=== PATIENT | female | born 1995 | race African-American/Black ===

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

== ENCOUNTER 2017-01-15 08:16 | Emergency (ER) | payer MEDICAID, OTHER ==
[~2017-01-15] VITALS: Ht 157.5 cm; Wt 55.5 kg
[2017-01-15 08:17] VITALS: BP 130/59; PULSE 99; RESP 18; TEMP 99.2; O2SAT 98
--- NOTE | 2017-01-15 09:14 | PD ---
HPI Chief Complaint: GI Complaint Time Seen by Provider: 09:14 Travel History International Travel<30 days: No Contact w/Intl Traveler<30days: No Traveled to known affect area: No History of Present Illness HPI 21-year-old Afro-Russian female presents the emergency department with 3 day history of abdominal upset nausea and vomiting. Patient denies fever, urinary symptoms, vaginal discharge, diarrhea, or significant abdominal pain. Patient states decreased urination secondary to her nausea and vomiting. She denies headache, sore throat, or chest pain. She has no cough. Patient is allergic to chlorohydrate PFSH Past Medical History Immunizations Current: Yes ?: Not LMP: 12/02/16 Social History Alcohol Use: No Tobacco Use: No Substance Use: No Allergies-Medications (Allergen,Severity, Reaction): Coded Allergies: chloral hydrate (Unverified Allergy, Unknown, 01/15/17) Reported Meds & Prescriptions Reported Meds & Active Scripts Active Zofran (Ondansetron HCl) 4 Mg Tab 4 Mg PO Q6HR PRN Macrobid (Nitrofurantoin Monoh/Nitrofur Macro) 100 Mg Cap 100 Mg PO BID 7 Days Review of Systems Except as stated in HPI: all other systems reviewed are Neg General / Constitutional: Positive: Chills, No: Fever Eyes: No: Visual changes HENT: No: Headaches, Vertigo, Lightheadedness, Sore Throat, Rhinitis, Rhinorrhea, Congestion, Nosebleed, Neck Stiffness, Neck Pain, Masses, Gingival Bleeding, Dental Difficulties, Ear Discharge, Earache Cardiovascular: No: Chest Pain or Discomfort Respiratory: No: Cough, Shortness of Breath, Wheezing, Pleuritic Pain Gastrointestinal: Positive: Nausea, Vomiting, Loss of Appetite, No: Diarrhea, Abdominal Pain Genitourinary: No: Urgency, Frequency, Dysuria Musculoskeletal: No: Pain Skin: No Rash Neurologic: No: Weakness Psychiatric: No: Depression Endocrine: No: Polydipsia Hematologic/Lymphatic: No: Easy Bruising Physical Exam Narrative GENERAL: Patient appears in mild to moderate distress. SKIN: Warm and dry. Normal color. Somewhat decreased turgor. HEAD: Atraumatic. Normocephalic. EYES: Pupils equal and round. No scleral icterus. No injection or drainage. ENT: No nasal bleeding or discharge. Mucous membranes pink and moist. Pharynx is clear. Airway is patent. NECK: Trachea midline. Supple nontender CARDIOVASCULAR: Regular rate and rhythm. RESPIRATORY: No accessory muscle use. Clear to auscultation. Breath sounds equal bilaterally. GASTROINTESTINAL: Abdomen soft, non-tender, nondistended. Hepatic and splenic margins not palpable. No CVA tenderness. MUSCULOSKELETAL: Extremities without clubbing, cyanosis, or edema. No obvious deformities. NEUROLOGICAL: Awake and alert. No obvious cranial nerve deficits. Motor grossly within normal limits. Five out of 5 muscle strength in the arms and legs. Normal speech. PSYCHIATRIC: Appropriate mood and affect; insight and judgment normal. Data Data Last Documented VS Vital Signs Date Time Temp Pulse Resp B/P (MAP) Pulse Ox O2 Delivery O2 Flow Rate FiO2 01/15/17 10:13 18 01/15/17 10:13 98.5 84 132/70 (90) 100 Room Air Orders Orders Urinalysis - C+S If Indicated (01/15/17 08:32) Ed Urine Pregnancytest Poc (01/15/17 08:32) Complete Blood Count With Diff (01/15/17 09:20) Comprehensive Metabolic Panel (01/15/17 09:20) Lipase (01/15/17 09:20) Lactic Acid (01/15/17 09:20) Prothrombin Time / Inr (Pt) (01/15/17 09:20) Act Partial Throm Time (Ptt) (01/15/17 09:20) Iv Access Insert/Monitor (01/15/17 09:20) Ecg Monitoring (01/15/17 09:20) Oximetry (01/15/17 09:20) NPO (01/15/17 09:20) Ondansetron Inj (Zofran Inj) (01/15/17 09:30) Sodium Chlor 0.9% 1000 Ml Inj (Ns 1000 M (01/15/17 09:20) Sodium Chloride 0.9% Flush (Ns Flush) (01/15/17 09:30) Labs Laboratory Tests Test 01/15/17 10:30 01/15/17 11:00 White Blood Count 5.0 TH/MM3 Red Blood Count 4.46 MIL/MM3 Hemoglobin 13.4 GM/DL Hematocrit 39.3 % Mean Corpuscular Volume 88.0 FL Mean Corpuscular Hemoglobin 30.0 PG Mean Corpuscular Hemoglobin Concent 34.1 % Red Cell Distribution Width 12.3 % Platelet Count 213 TH/MM3 Mean Platelet Volume 10.6 FL Neutrophils (%) (Auto) 69.4 % Lymphocytes (%) (Auto) 16.9 % Monocytes (%) (Auto) 13.3 % Eosinophils (%) (Auto) 0.0 % Basophils (%) (Auto) 0.4 % Neutrophils # (Auto) 3.5 TH/MM3 Lymphocytes # (Auto) 0.9 TH/MM3 Monocytes # (Auto) 0.7 TH/MM3 Eosinophils # (Auto) 0.0 TH/MM3 Basophils # (Auto) 0.0 TH/MM3 CBC Comment DIFF FINAL Differential Comment Prothrombin Time 11.4 SEC Prothromb Time International Ratio 1.1 RATIO Activated Partial Thromboplast Time 25.8 SEC Blood Urea Nitrogen 13 MG/DL Creatinine 0.72 MG/DL Random Glucose 108 MG/DL Total Protein 8.3 GM/DL Albumin 4.3 GM/DL Calcium Level 9.6 MG/DL Alkaline Phosphatase 51 U/L Aspartate Amino Transf (AST/SGOT) 17 U/L Alanine Aminotransferase (ALT/SGPT) 23 U/L Total Bilirubin 0.4 MG/DL Sodium Level 133 MEQ/L Potassium Level 3.9 MEQ/L Chloride Level 101 MEQ/L Carbon Dioxide Level 24.0 MEQ/L Anion Gap 8 MEQ/L Estimat Glomerular Filtration Rate 126 ML/MIN Lactic Acid Level 1.7 mmol/L Lipase 92 U/L Urine Color YELLOW Urine Turbidity HAZY Urine pH 6.0 Urine Specific [place] 1.029 Urine Protein 100 mg/dL Urine Glucose (UA) NEG mg/dL Urine Ketones 150 mg/dL Urine Occult Blood NEG Urine Nitrite NEG Urine Bilirubin NEG Urine Urobilinogen LESS THAN 2.0 MG/DL Urine Leukocyte Esterase NEG Urine RBC 1 /hpf Urine WBC 8 /hpf Urine Squamous Epithelial Cells 26 /hpf Urine Bacteria RARE /hpf Urine Hyaline Casts 16 /lpf Urine Mucus MANY /lpf Microscopic Urinalysis Comment CULT NOT INDICATED MDM Medical Decision Making Medical Screen Exam Complete: Yes Emergency Medical Condition: Yes Differential Diagnosis Nausea and vomiting. Abdominal pain. . Urinary tract infection. Narrative Course Patient appears medically stable. Labs ordered including CBC, CMP, urinalysis, urine . IV access is obtained patient is given 2 L normal saline bolus. Patient is given 4 mg Zofran IV. Urine is positive. Patient states her last menstrual period was sometime in the beginning of last month but she can't remember specific date. Labs show lightly low sodium of 133 otherwise no significant findings. Urinalysis is unremarkable. Patient will be treated with Zofran 4 mg every 6 hours when necessary nausea # 20. [facility] is [facility] for further follow-up for her . Patient follow-up with her primary care physician as well as needed. Diagnosis Primary Impression: Nausea and vomiting in prior to 22 weeks gestation Referrals: [facility] call for appointment Patient Instructions: Abdominal Pain in (ED), Acute Nausea and Vomiting (ED), General Instructions Additional Instructions: Urine is positive. Patient states her last menstrual period was sometime in the beginning of last month but she can't remember specific date. Labs show lightly low sodium of 133 otherwise no significant findings. Urinalysis is unremarkable. Patient will be treated with Zofran 4 mg every 6 hours when necessary nausea # 20. Patient is referred to the [facility] for further follow-up for her . Patient follow-up with her primary care physician as well as needed. Med/Other Pt SpecificInfo: Prescription(s) given Scripts Ondansetron (Zofran) 4 Mg Tab 4 MG PO Q6HR Y for NAUSEA OR VOMITING, #20 TAB 0 Refills Prov: Aissatou Mejía DO 01/15/17 Disposition: 01 DISCHARGE HOME Condition: Stable Binh Delvalle Jan 15, 2017 09:14
[2017-01-15] MEDS ORDERED: KETOROLAC TROMETHAMINE 30 MG/ML (IVP) VIAL IVP ONE (09:30)
[2017-01-15] MEDS ORDERED: SODIUM CHLORIDE 0.9% FLUSH 10 ML FLUSH IV FLUSH PRN (09:30)
[2017-01-15] MEDS ORDERED: ONDANSETRON HCL 4 MG/2 ML VIAL IVP ONE (09:30)
[2017-01-15 10:13] VITALS: BP 132/70; PULSE 84; RESP 18; TEMP 98.5; O2SAT 100
[2017-01-15] MEDS ORDERED: ZOFR4TAB PO (10:34)
[2017-01-15] MEDS: SODIUM CHLOR 0.9% 1000 ML INJ 1,000 ML IV SCH ×2 (10:38→11:15)
[2017-01-15 11:08] LABS: AUTOMATED NEUTROPHIL # 3.5 TH/MM3 (1.8-7.7); BASOPHIL % 0.4 % (0.0-2.0); HEMATOCRIT 39.3 % (35.0-46.0); HEMO FLAGS DIFF FINAL; LYMPH % 16.9 % (9.0-44.0); LYMPHOCYTE # 0.9 TH/MM3 (1.0-4.8); MEAN CORPUSCULAR HGB CONC 34.1 % (32.0-36.0); MONO % 13.3 % (0.0-8.0); NEUT % 69.4 % (16.0-70.0); PLATELET COUNT 213 TH/MM3 (150-450); RED BLOOD COUNT 4.46 MIL/MM3 (4.00-5.30); RED CELL DISTRIBUTION WIDTH 12.3 % (11.6-17.2)
[2017-01-15 11:13] LABS: APTT (PATIENT) 25.8 SEC (24.3-30.1); INTERNATIONAL NORMALIZED RATIO 1.1 RATIO; PROTHROMBIN TIME - PATIENT 11.4 SEC (9.8-11.6)
[2017-01-15 11:33] LABS: ANION GAP 8 MEQ/L (5-15); AST (GOT) 17 U/L (16-38); BLOOD UREA NITROGEN 13 MG/DL (7-18); CHLORIDE 101 MEQ/L (98-107); GLOMERULAR FILTRATION RATE 126 ML/MIN (>89); POTASSIUM 3.9 MEQ/L (3.5-5.1); SODIUM (NA) 133 MEQ/L (136-145)
[2017-01-15 11:37] LABS: ALKALINE PHOSPHATASE 51 U/L (45-117); ALT (GPT) 23 U/L (9-42); TOTAL BILIRUBIN ADULT 0.4 MG/DL (0.2-1.0)
[2017-01-15 12:05] LABS: BACTERIA, URINE RARE /hpf; BLOOD, URINE NEG (NEG); COMMENT (UR) CULT NOT INDICATED; CULTURE IF INDICATED CULT NOT INDICATED; GLUCOSE,URINE NEG (NEG); HYALINE CAST, URINE 16 /lpf (RARE); KETONE, URINE 150 mg/dL (NEG); MUCUS URINE MANY /lpf (OCC); NITRITE,URINE NEG (NEG); SQUAMOUS EPITHELIAL CELL URINE 26 /hpf (0-5); URINE COLOR YELLOW (YELLW/STRAW)
[2017-01-15 12:33] VITALS: BP 112/86
--- NOTE | 2017-01-15 22:21 | EKG ---
Date Performed: 01/15/2017 Time Performed: 10:44:43 PTAGE: 21 years EKG: Sinus rhythm POSSIBLE LEFT ATRIAL ENLARGEMENT BORDERLINE ECG DOCTOR: Katarzyna Dunne Interpretating Date/Time 01/15/2017 22:20:45
[2017-01-16] MEDS ORDERED: DOXY10TA PO ×2 (19:15→19:35)
== END 2017-01-15 12:50 | disposition home or self-care (01) ==
LOC: NEPD 08:16
DX: O21.9 Vomiting of pregnancy, unspecified (principal); R11.0 Nausea; Z3A.01 Less than 8 weeks gestation of pregnancy
CPT/HCPCS: 80053; 81001; 83605; 83690; 84703; 85025; 85610; 85730; 93005; 96361; 96374; 99284; J2405; J7030

== ENCOUNTER 2017-01-16 16:51 | Emergency (ER) | payer MEDICAID ==
[~2017-01-16] VITALS: Ht 157.5 cm; Wt 54.5 kg
[~2017-01-16 16:51] MED LIST changes: +ZOFR4TAB PO
[2017-01-16 16:53] VITALS: BP 116/56; PULSE 78; RESP 16; TEMP 99.1; O2SAT 98
[2017-01-16] MEDS ORDERED: DOXY10TA PO ×2 (19:15→19:35)
--- NOTE | 2017-01-16 19:26 | PD ---
HPI Chief Complaint: Pain: Acute or Chronic Time Seen by Provider: 19:00 Travel History International Travel<30 days: No Contact w/Intl Traveler<30days: No Traveled to known affect area: No History of Present Illness HPI 21-year-old female presents to the emergency room for evaluation of nausea , vomiting, and chest pain for the past several days. Patient came to the emergency room yesterday for the same complaint. She had a normal workup and was discharged with prescription for Zofran. States she took the prescription to [facility] before they did not take her insurance and to go to [facility]. Patient states [facility] will not accept her insurance which is Medicaid [place]. Patient has had 3 episodes of nausea and vomiting today. States she has had decreased appetite because anytime she eats, she will throw up. The chest pain is localized just above her sternum and radiates into the clavicle area. It is relieved when she sleeps and lives on her right side. She denies any significant vaginal discharge, vaginal bleeding, or abdominal pain. Denies any other pain. LMP was at the beginning of December. [facility] Past Medical History Immunizations Current: Yes ?: LMP: 12/2016 Social History Alcohol Use: No Tobacco Use: No Substance Use: No Allergies-Medications (Allergen,Severity, Reaction): Coded Allergies: chloral hydrate (Unverified Allergy, Unknown, 01/15/17) Reported Meds & Prescriptions Reported Meds & Active Scripts Active Diclegis (Doxylamine-Pyridoxine) 10-10 Mg Tab 1 Tab PO HS Zofran (Ondansetron HCl) 4 Mg Tab 4 Mg PO Q6HR PRN Macrobid (Nitrofurantoin Monoh/Nitrofur Macro) 100 Mg Cap 100 Mg PO BID 7 Days Review of Systems Except as stated in HPI: all other systems reviewed are Neg Physical Exam Narrative GENERAL: Well-nourished, well-developed female in no acute distress. Afebrile. Ambulatory. SKIN: Focused skin assessment warm/dry. HEAD: Normocephalic. EYES: No scleral icterus. No injection or drainage. NECK: Supple, trachea midline. No JVD or lymphadenopathy. CARDIOVASCULAR: Regular rate and rhythm without murmurs, gallops, or rubs. RESPIRATORY: Breath sounds equal bilaterally. No accessory muscle use. GASTROINTESTINAL: Abdomen soft, non-tender, nondistended. No pelvic tenderness. Data Data Last Documented VS Vital Signs Date Time Temp Pulse Resp B/P (MAP) Pulse Ox O2 Delivery O2 Flow Rate FiO2 01/16/17 16:53 99.1 78 16 116/56 (76) 98 Room Air Orders Orders Ed Discharge Order (01/16/17 19:26) MDM Medical Decision Making Medical Screen Exam Complete: Yes Emergency Medical Condition: Yes Medical Record Reviewed: Yes Differential Diagnosis Nausea and vomiting during , chest pain, esophagitis, GERD Narrative Course 21-year-old approximately 5 week female presents to the emergency room for evaluation of nausea, vomiting, and chest pain that started several days ago. She came to the ER yesterday and had full workup which was negative. EKG showed left atrial enlargement but was otherwise unremarkable. CBC and CMP were only remarkable for mild hyponatremia 133. Patient was discharged with prescription for Zofran but did not have it filled. Symptoms are unchanged from yesterday. She denies any significant abdominal pain, pelvic pain, vaginal discharge, or bleeding. Abdomen is soft and nontender. Vital signs stable. Patient does not appear dehydrated. Mucous membranes are moist. She was told to try another pharmacy and given a prescription for Diclegis. Told to follow up with an PAUNCH TRIMMER this week, call for appointment tomorrow. Told to return for worsening symptoms. She understands and agrees to plan. Diagnosis Primary Impression: Nausea and vomiting during Referrals: [facility] Additional Instructions: Take 2 tablets at bedtime on day 1 and 2. If symptoms persist, take 1 tablet in morning and 2 tablets at bedtime on day 3. Megan may help with symptoms. Follow-up with an finishing operator. Return to the emergency room for worsening symptoms. Med/Other Pt SpecificInfo: Prescription(s) given Scripts Doxylamine-Pyridoxine (Diclegis) 10-10 Mg Tab 1 TAB PO HS, #21 Prov: Margarito Rdz MD 01/16/17 Disposition: 01 DISCHARGE HOME Condition: Stable Cely Navarro Jan 16, 2017 19:26
== END 2017-01-16 19:43 | disposition home or self-care (01) ==
LOC: NEPK 16:51
DX: O21.9 Vomiting of pregnancy, unspecified (principal); Z3A.01 Less than 8 weeks gestation of pregnancy
CPT/HCPCS: 99283

== ENCOUNTER 2017-09-05 23:14 | Inpatient (IN) ==
--- NOTE | 2017-09-06 01:14 | ED ---
History of Present Illness Primary Care Physician: UNKNOWN Chief Complaint: LOF History of Present Illness: 21 yo presents at 39 wks by second trimester u/s, with LOF, clear at 11 pm. pt denies VB. +CTX and nl FM. with limited care. denies BESS/RUQ pain/visual changes Review of Systems All other systems reviewed negative except as stated in HPI PMFSH - Medical / Surgical Hx Neg / Unobtainable Medical Problems Denied: Yes Surgical History: No Previous Surgery - Tobacco History Smoking Status: Never smoker - Alcohol History How Often Do You Have a Drink Containing Alcohol: Never (during ) - Substance Use History Substance History: No History of Abuse - Travel History Recent Travel in the [place] Within the Last 8 Weeks: No Recent Travel Out of the Country Within the Last 8 Weeks: No Medications and Allergies Active Medications: Active Medications Sodium Chloride (Ns Flush) 2 ml IV.FLUSH BID MADALYN Sodium Chloride (Ns Flush) 2 ml IV.FLUSH PRN PRN PRN Reason: FLUSH AFTER USING IV ACCESS Allergies Allergy/AdvReac Type Severity Reaction Status Date / Time chloral hydrate Allergy Unknown Unverified 01/15/17 10:11 Exam Vital signs: Vital Signs 09/06/17 00:00 09/06/17 00:57 Temperature 99.6 F Pulse Rate 77 Respiratory Rate 18 Blood Pressure 162/89 H 149/122 H - Constitutional no acute distress - Routine Respiratory Exam Present: CTA bilaterally - Routine Cardiovascular Exam Present: RRR - Routine Abdominal Exam Present: soft, normoactive bowel sounds - Routine Exam Comments: SVE: 3-4/100/-1 grossly SROM FHTs cat 1 Assessment and Plan - Diagnosis (1) SROM (spontaneous rupture of membranes) Status: Acute Plan: admit check GBS/ labs check GHTN labs epidural PRN Discharge Plan - Discharge Disposition Patient Disposition: 30 Still Patient - Discharge Condition Condition: Stable - Physicians Team ED Provider: Megha Oliveros Primary Care Provider: UNKNOWN, - Discharge Instructions Print Language: Portuguese
[2017-09-06] MEDS ORDERED: Sodium Chlor 0.9% Inj 500 ML IV.SIG PRN (01:17)
[2017-09-06] MEDS ORDERED: Naloxone Inj 0.4 MG/ML Vial IV.PUSH PRN ×2 (01:17→18:36)
[2017-09-06] MEDS ORDERED: Oxytocin 30 Units/500ml Premix 30 UNITS/500 ML BAG IV.SIG PRN (01:17)
[2017-09-06] MEDS ORDERED: fentaNYL Citrate Inj 100 MCG/2 ML Ampul IV.PUSH PRN ×2 (01:17)
[2017-09-06] MEDS ORDERED: Oxytocin 30 Units/500ml Premix 30 UNITS/500 ML BAG IV.SIG ONE (01:17)
[2017-09-06] MEDS ORDERED: Sod Chloride 0.9% Inj 1,000 ML IV.CONT PRN (01:17)
--- NOTE | 2017-09-06 01:26 | P.HPOB ---
History of Present Illness Primary Care Physician: UNKNOWN Chief Complaint: LOF History of Present Illness: 21 yo presents at 39 wks by second trimester u/s, with LOF, clear at 11 pm. pt denies VB. +CTX and nl FM. with limited care. denies BESS/RUQ pain/visual changes Review of Systems All other systems reviewed negative except as stated in HPI PMFSH - Medical / Surgical Hx Neg / Unobtainable Medical Problems Denied: Yes Surgical History: No Previous Surgery - Tobacco History Smoking Status: Never smoker - Alcohol History How Often Do You Have a Drink Containing Alcohol: Never (during ) - Substance Use History Substance History: No History of Abuse - Travel History Recent Travel in the [place] Within the Last 8 Weeks: No Recent Travel Out of the Country Within the Last 8 Weeks: No Medications and Allergies Active Medications: Active Medications Sodium Chloride (Ns Flush) 2 ml IV.FLUSH BID MADALYN Sodium Chloride (Ns Flush) 2 ml IV.FLUSH PRN PRN PRN Reason: FLUSH AFTER USING IV ACCESS Allergies Allergy/AdvReac Type Severity Reaction Status Date / Time chloral hydrate Allergy Unknown Unverified 01/15/17 10:11 Exam Vital signs: Vital Signs 09/06/17 00:00 09/06/17 00:57 Temperature 99.6 F Pulse Rate 77 Respiratory Rate 18 Blood Pressure 162/89 H 149/122 H - Constitutional no acute distress - Routine Respiratory Exam Present: CTA bilaterally - Routine Cardiovascular Exam Present: RRR - Routine Abdominal Exam Present: soft, normoactive bowel sounds - Routine Exam Comments: SVE: 3-4/100/-1 grossly SROM FHTs cat 1 Assessment and Plan - Diagnosis (1) SROM (spontaneous rupture of membranes) Status: Acute Plan: admit check GBS/ labs check GHTN labs epidural PRN
[2017-09-06] MEDS ORDERED: Citric Acid/Sodium Citrate Liq 30 ML UDC PO SCH (01:30)
[2017-09-06] MEDS ORDERED: Labetalol HCl Inj 100 MG/20 ML Vial ONE (01:35)
[2017-09-06] MEDS ORDERED: Mag Sulf/Water 40 gm/1000 ml 40 GM/1,000 ML BAG IV.CONT ONE (01:37)
[2017-09-06 01:38] LABS: Amphetamine Urine With Conf Neg (Neg); Benzodiazepine Urine With Conf Neg (Neg)
[2017-09-06 01:40] LABS: Hemoglobin 12.2 gm/dL (11.6-15.3); Mean Corpuscular HGB Conc 33.9 % (32.0-36.0); Mean Corpuscular Volume 88.5 fL (80.0-100.0); Mean Platelet Volume 10.2 fL (7.0-11.0); Platelet Count 217 th/mm3 (150-450); Red Blood Count 4.06 mil/mm3 (4.00-5.30); Red Cell Distribution Width 12.2 % (11.6-17.2); White Blood Count 4.9 th/mm3 (4.0-11.0)
[2017-09-06 01:44] LABS: Bacteria,Urine Few /hpf; Bilirubin,Urine Negative (Negative); Clarity,Urine Cloudy (Clear); Color,Urine Yellow (Yellw/Straw); Glucose,Urine (UA) Negative (Negative); Hyaline Casts,Urine 1 /lpf (0-3); Leukocyte Esterase,Urine Moderate (Negative); Mucus,Urine Few /lpf (Occasional); Nitrite,Urine Negative (Negative); Specific Gravity,Urine 1.005 (1.002-1.035); Squamous Epithelial Cell,Urine 10 /hpf (0-5); Trichomonas,Urine Rare /hpf
[2017-09-06 01:45] LABS: Alanine Aminotransferase 12 U/L (9-42); Albumin 2.8 g/dL (3.4-5.0); Anion Gap 8 meq/L (5-15); Aspartate Aminotransferase 5 U/L (16-38); Blood Urea Nitrogen 5 mg/dL (7-18); Calcium 8.8 mg/dL (8.5-10.1); Carbon Dioxide 25.1 meq/L (21.0-32.0); Chloride 108 meq/L (98-107); Glomerular Filtration Rate Greater Than 89 mL/min (>89); Glucose,Random 74 mg/dL (74-106); Potassium 4.1 meq/L (3.5-5.1); Sodium 141 meq/L (136-145); Uric Acid 5.1 mg/dl (2.6-6.0)
[2017-09-06 01:47] LABS: Alkaline Phosphatase 185 U/L (45-117)
[2017-09-06] MEDS ORDERED: Labetalol HCl Inj 100 MG/20 ML Vial IV.PUSH PRN ×3 (01:49→02:12)
[2017-09-06] MEDS ORDERED: Mag Sulf/Water 4 gm/100 ml 100 ML IV.SIG ONE (01:49)
[2017-09-06] MEDS ORDERED: hydrALAZINE HCl Inj 20 MG/ML Vial IV.PUSH PRN ×2 (01:49→02:13)
[2017-09-06] MEDS ORDERED: fentaNYL 2MCG-Bupiv 0.125% Epi 150 ML EPIDURAL ONE (02:05)
[2017-09-06] MEDS ORDERED: Calcium Chloride Inj 1 GM/10 ML Syringe IV.PUSH PRN (02:49)
[2017-09-06] MEDS ORDERED: fentaNYL Citrate Inj 100 MCG/2 ML Ampul EPIDURAL ONE (03:17)
[2017-09-06] MEDS ORDERED: fentaNYL 2MCG-Bupiv 0.125% Epi 150 ML EPIDURAL PRN (03:30)
[2017-09-06 03:57] LABS: Hepatitis A IgM Antibody Nonreactive (Nonreactive); Hepatitits B Surface Antigen Nonreactive (Nonreactive)
--- NOTE | 2017-09-06 07:07 | P.OBLABOR ---
Subjective Interval history: pt comfortable with epidural, denies SOB/CP/BESS/RUQ pain/visual changes Objective Vital Signs: Vital Signs - 8 hr 09/06/17 00:00 09/06/17 00:57 09/06/17 01:25 Temperature 99.6 F Pulse Rate 77 89 Respiratory Rate 18 Blood Pressure 162/89 H 149/122 H 139/90 09/06/17 01:26 09/06/17 01:34 09/06/17 01:41 Temperature Pulse Rate 86 Respiratory Rate 16 Blood Pressure 162/111 H 155/94 H 09/06/17 01:43 09/06/17 01:45 09/06/17 01:51 Temperature Pulse Rate 77 87 97 H Respiratory Rate Blood Pressure 142/94 H 141/82 H 150/74 H 09/06/17 01:54 09/06/17 01:57 09/06/17 02:10 Temperature Pulse Rate 93 H 96 H Respiratory Rate 16 16 Blood Pressure 144/81 H 153/87 H 09/06/17 02:27 09/06/17 02:30 09/06/17 02:40 Temperature Pulse Rate 86 89 Respiratory Rate Blood Pressure 145/80 H 143/91 H 139/82 09/06/17 02:45 09/06/17 03:10 09/06/17 03:30 Temperature 98.8 F Pulse Rate 81 83 100 H Respiratory Rate 16 Blood Pressure 141/64 H 139/64 113/29 L 09/06/17 03:45 09/06/17 04:00 09/06/17 04:12 Temperature Pulse Rate 80 Respiratory Rate 18 18 Blood Pressure 133/51 L 122/43 L 09/06/17 04:25 09/06/17 04:45 09/06/17 04:50 Temperature 98.8 F Pulse Rate 94 H 91 H Respiratory Rate Blood Pressure 127/61 132/61 09/06/17 04:55 09/06/17 05:10 09/06/17 05:25 Temperature Pulse Rate 89 83 Respiratory Rate 16 Blood Pressure 146/88 H 128/72 09/06/17 06:20 09/06/17 06:30 09/06/17 06:35 Temperature Pulse Rate 82 84 Respiratory Rate 16 16 Blood Pressure 141/86 H 143/95 H 09/06/17 06:45 09/06/17 06:50 Temperature Pulse Rate 80 Respiratory Rate 16 Blood Pressure 145/81 H Objective: Pelvic Exam: Cervix: [-] 5-6/100/-1 at 6:11 Dilatation: [-] Effacement: [-] Station: [-] Presentation: [-] Membranes: [ruptured] Uterine Contractions: [-] q 2-3 MVUS 180-240 since 6:11 FHT's: Category: [-] 1 Baseline: [-] 120s Reactive: [-] yes Variability: [-] mod Decels: [-] 9 min decel at 5:45 am resolved with pit off and position changes. amnioinfusion also started. Weeks Gestation: 39 Assessment and Plan - Diagnosis (1) SROM (spontaneous rupture of membranes) Status: Acute Plan: adequate contractions without pitocin GBS neg (2) Pre-eclampsia Code(s): O14.90 - Unspecified pre-eclampsia, unspecified trimester Status: Acute Plan: s/p 1 dose of IV labetalol cont magnesium no s/sx of mag toxicity
[2017-09-06 07:18] LABS: Protein/Creatinine Ratio,Urine 2.41 (0.00-0.14)
--- NOTE | 2017-09-06 08:30 | P.OBLABOR ---
Subjective Interval history: pt comfortable, denies BESS/RUQ pain/visual changes. no SOB/CP. Objective Vital Signs: Vital Signs - 8 hr 09/06/17 00:57 09/06/17 01:25 09/06/17 01:26 Temperature Pulse Rate 89 Respiratory Rate 16 Blood Pressure 149/122 H 139/90 09/06/17 01:34 09/06/17 01:41 09/06/17 01:43 Temperature Pulse Rate 86 77 Respiratory Rate Blood Pressure 162/111 H 155/94 H 142/94 H 09/06/17 01:45 09/06/17 01:51 09/06/17 01:54 Temperature Pulse Rate 87 97 H Respiratory Rate 16 Blood Pressure 141/82 H 150/74 H 09/06/17 01:57 09/06/17 02:10 09/06/17 02:27 Temperature Pulse Rate 93 H 96 H Respiratory Rate 16 Blood Pressure 144/81 H 153/87 H 145/80 H 09/06/17 02:30 09/06/17 02:40 09/06/17 02:45 Temperature 98.8 F Pulse Rate 86 89 81 Respiratory Rate 16 Blood Pressure 143/91 H 139/82 141/64 H 09/06/17 03:10 09/06/17 03:30 09/06/17 03:45 Temperature Pulse Rate 83 100 H 80 Respiratory Rate 18 Blood Pressure 139/64 113/29 L 133/51 L 09/06/17 04:00 09/06/17 04:12 09/06/17 04:25 Temperature Pulse Rate 94 H Respiratory Rate 18 Blood Pressure 122/43 L 127/61 09/06/17 04:45 09/06/17 04:50 09/06/17 04:55 Temperature 98.8 F Pulse Rate 91 H Respiratory Rate 16 Blood Pressure 132/61 09/06/17 05:10 09/06/17 05:25 09/06/17 06:20 Temperature Pulse Rate 89 83 82 Respiratory Rate Blood Pressure 146/88 H 128/72 141/86 H 09/06/17 06:30 09/06/17 06:35 09/06/17 06:45 Temperature Pulse Rate 84 80 Respiratory Rate 16 16 Blood Pressure 143/95 H 145/81 H 09/06/17 06:50 09/06/17 07:15 09/06/17 07:25 Temperature 98.2 F Pulse Rate 80 Respiratory Rate 16 Blood Pressure 148/99 H 09/06/17 07:50 09/06/17 08:00 09/06/17 08:10 Temperature Pulse Rate 88 87 Respiratory Rate 16 Blood Pressure 155/86 H 160/56 H Objective: Pelvic Exam: Cervix: [-] 6/100/-1 vtx Dilatation: [-] Effacement: [-] Station: [-] Presentation: [-] Membranes: [ruptured] Uterine Contractions: [-] q3-4 FHT's: Category: [-] 1 Baseline: [-] 120s Reactive: [-] Variability: [-] mod Decels: [-] rare Weeks Gestation: 39 Patient Started Active Labor: Yes Assessment and Plan - Diagnosis (1) SROM (spontaneous rupture of membranes) Status: Acute Plan: inadequate contractions start pitocin GBS neg (2) Pre-eclampsia Code(s): O14.90 - Unspecified pre-eclampsia, unspecified trimester Status: Acute Plan: s/p 1 dose of IV labetalol cont magnesium no s/sx of mag toxicity
[2017-09-06] MEDS ORDERED: Measles/Mumps/Rubella Vaccine Inj 0.5 ML Vial SQ ONE (16:00)
[2017-09-06] MEDS ORDERED: Diphtheria/Tetanus/Pertussis Vaccine Inj 0.5 ML Syringe IM ONE (16:00)
[2017-09-06] MEDS ORDERED: Methylergonovine Inj 0.2 MG/ML Ampul ONE (18:28)
[2017-09-06] MEDS ORDERED: miSOPROStol 200 MCG Tablet ONE (18:29)
[2017-09-06] MEDS ORDERED: Carboprost Tromethamine Inj 250 MCG/ML Ampul IM ONE (18:29)
[2017-09-06] MEDS ORDERED: ENTER PATIENT'S HEIGHT AND WEIGHT INTO MEDITECH - CALL PHARMACY OTHER SCH (18:30)
[2017-09-06] MEDS ORDERED: Bisacodyl 10 MG Supp RECTAL PRN (18:36)
[2017-09-06] MEDS ORDERED: Witch Hazel 50%/Glyderin 12.5% 40 Pad Jar RECTAL PRN (18:36)
[2017-09-06] MEDS ORDERED: Benzocaine 20% Top Spray 60 ML Can TOPICAL PRN (18:36)
[2017-09-06] MEDS ORDERED: Zolpidem Tartrate 5 MG Tablet PO PRN (18:36)
[2017-09-06] MEDS ORDERED: Acetaminophen 325 MG Tablet PO PRN (18:36)
--- NOTE | 2017-09-06 18:46 | P.OBDELI ---
Weeks Gestation: 39 Patient Started Active Labor: Yes Artificial Rupture of Membrane: No Anesthesia: Epidural Episiotomy: none Vaginal Delivery: Normal Presentation: Occiput anterior Nuchal Cord: None Delayed Cord Clamping (45 sec): No (20 seconds cord clamp due to need for resucitation) Placenta: Spontaneous delivery Laceration: Vaginal, 2 deg (perineal with extention to L labia majora) Repair: Chromic running Estimated blood loss (mL): 750 (Hemabate given IM due to Uterine Atony ) : Male (Ap) Male A Delivery Date: 09/06/17 Infant Delivery Time: 18:16 score (1 min): 3 score (5 min): 3 score (10 min): 7 Attestation Collaborating MD Comments: I directly supervised this . Cord clamping was not delayed due to resuscitation necessity. Mild uterine atony treated with hemabate. Baby temp and mother temp immediately 100.4. Mother given an single dose of Rocephin.
[2017-09-06 18:50] LABS: Cord Arterial Blood HCO3 19.3
[2017-09-06] MEDS ORDERED: ceFAZolin 2 GM Premix Inj 2 GM/50 ML PIGGYBACK IV.SIG ONE (19:30)
[2017-09-06] MEDS ORDERED: Oxytocin 30 Units/500ml Premix 30 UNITS/500 ML BAG IV.CONT SCH (19:30)
[2017-09-06] MEDS: Mag Sulf/Water 40 gm/1000 ml 40 GM/1,000 ML BAG IV.CONT SCH (19:53)
[2017-09-07] MEDS: Ibuprofen 400 MG Tablet PO PRN ×2 (07:44→22:10)
--- NOTE | 2017-09-07 08:16 | P.PNOB ---
Subjective Interval history: Patient is a 21-year-old delivered at 38 weeks and 6 days. Patient is day 1 after . Patient's pain is well-controlled. Patient reports eating and drinking without any nausea or vomiting. Patient reports minimal bleeding. Patient has passed gas and had loose bowel movements after receiving Hemabate yesterday. Patient is walking without lower extremity pain or shortness of breath. Patient reports desire for contraception. She reports no lightheadedness/dizziness while on the magnesium. Objective Vital Signs/I&O: Vital Signs 09/06/17 08:30 09/06/17 08:40 09/06/17 08:55 Temperature Pulse Rate 90 90 91 H Respiratory Rate 16 Blood Pressure 154/67 H 143/80 H 149/96 H 09/06/17 09:00 09/06/17 09:15 09/06/17 09:30 Temperature 98.8 F Pulse Rate 94 H 88 Respiratory Rate 16 16 Blood Pressure 103/71 130/69 09/06/17 09:40 09/06/17 09:55 09/06/17 10:30 Temperature Pulse Rate 89 101 H 105 H Respiratory Rate 16 Blood Pressure 134/48 L 142/82 H 149/81 H 09/06/17 10:40 09/06/17 10:55 09/06/17 11:00 Temperature Pulse Rate 105 H 102 H Respiratory Rate 16 Blood Pressure 130/68 128/65 09/06/17 11:10 09/06/17 11:25 09/06/17 12:35 Temperature 99.1 F Pulse Rate 112 H 100 H 97 H Respiratory Rate 16 Blood Pressure 137/117 H 142/82 H 154/86 H 09/06/17 13:00 09/06/17 13:05 09/06/17 13:43 Temperature 99.3 F Pulse Rate 95 H 95 H 114 H Respiratory Rate 18 16 Blood Pressure 145/84 H 141/76 H 135/83 09/06/17 14:25 09/06/17 14:40 09/06/17 14:45 Temperature Pulse Rate 102 H 105 H Respiratory Rate 16 Blood Pressure 153/97 H 155/97 H 09/06/17 14:55 09/06/17 15:15 09/06/17 15:25 Temperature Pulse Rate 101 H 101 H 102 H Respiratory Rate 16 Blood Pressure 137/72 09/06/17 15:30 09/06/17 15:45 09/06/17 16:10 Temperature 99.2 F Pulse Rate 112 H 111 H Respiratory Rate 16 Blood Pressure 120/72 147/97 H 09/06/17 16:25 09/06/17 16:45 09/06/17 17:23 Temperature 100.0 F H Pulse Rate 117 H Respiratory Rate 18 Blood Pressure 09/06/17 17:25 09/06/17 18:58 09/06/17 19:30 Temperature 98.8 F Pulse Rate 99 H 99 H Respiratory Rate 18 16 16 Blood Pressure 149/82 H 156/97 H 09/06/17 19:42 09/06/17 19:45 09/06/17 19:50 Temperature Pulse Rate 101 H 99 H Respiratory Rate 16 16 Blood Pressure 151/93 H 09/06/17 20:00 09/06/17 20:20 09/06/17 21:00 Temperature Pulse Rate 101 H 99 H 94 H Respiratory Rate Blood Pressure 152/84 H 151/87 H 140/87 09/06/17 21:15 09/06/17 22:07 09/06/17 23:16 Temperature 98.9 F Pulse Rate 91 H 93 H Respiratory Rate 20 18 Blood Pressure 152/89 H 154/91 H 09/07/17 00:16 09/07/17 00:18 09/07/17 00:26 Temperature 98.5 F Pulse Rate 96 H 101 H Respiratory Rate 18 Blood Pressure 164/95 H 159/93 H 09/07/17 01:00 09/07/17 01:57 09/07/17 02:00 Temperature Pulse Rate 102 H 102 H Respiratory Rate 18 Blood Pressure 144/86 H 156/78 H 09/07/17 02:05 09/07/17 05:27 09/07/17 06:00 Temperature 98.5 F Pulse Rate 101 H 98 H Respiratory Rate 18 18 Blood Pressure 151/85 H 134/70 09/07/17 07:00 09/07/17 08:00 Temperature 98.7 F Pulse Rate 105 H 93 H Respiratory Rate 16 16 Blood Pressure 129/60 154/86 H Intake & Output 09/06/17 09/07/17 09/07/17 18:59 06:59 18:59 Intake Total 1000 / 1000 Balance 1000 / 1000 Weight 55 kg Intake: IV 1000 / 1000 LR 1000 mL Inj 1,000 ML @ 75 1000 / 1000 mls/hr IV.CONT .[id number] [facility] Rx# :[id number] Result Diagrams: 09/06/17 01:15 09/06/17 01:15 Objective Remarks: GENERAL: Well-nourished, well-developed patient. CARDIOVASCULAR: Regular rate and rhythm without murmurs, gallops, or rubs. RESPIRATORY: Breath sounds equal bilaterally. No accessory muscle use. ABDOMEN/GI: Abdomen soft, non-tender. Fundus: Firm, non-tender at umbilicus. GENITOURINARY: Light to moderate bleeding. EXTREMITIES: No cyanosis or edema, non-tender, without signs of DVT. Medications and IVs: Active Medications Acetaminophen (Tylenol) 650 mg PO Q4H PRN PRN Reason: PAIN SCALE 1 TO 2 Al Hydroxide/Mg Hydroxide (Milk Of Magnesia Liq) 30 ml PO Q12H PRN PRN Reason: Mild Constipation Benzocaine (Americaine 20% Top [place]) 1 spray TOPICAL Q4H PRN PRN Reason: For Perineum Discomfort Last Admin: 09/07/17 07:35 Dose: 1 spray Bisacodyl (Dulcolax Supp) 10 mg RECTAL DAILY PRN PRN Reason: SEVERE CONSITIPATION Calcium Chloride (Calcium Chloride Inj) 1 gm IV.PUSH UNSCH X1 PRN PRN Reason: MAGNESIUM TOXICITY Oxytocin (Pitocin 30 Units/Ns 500 Ml Premix) 30 units in 500 mls @ 2 mls/hr IV.SIG TITRATE PRN; Protocol PRN Reason: For induction of labor Magnesium Sulfate (Magnesium Sulfate/Water 40 Gm/1000 Ml Premix) 40 gm in 1, 000 mls @ 50 mls/hr IV.CONT Q24H [facility] Last Admin: 09/06/17 19:53 Dose: 2 gm/hr, 50 mls/hr Lactated Ringer's (Lr 1000 Ml Inj) 1,000 mls @ 75 mls/hr IV.CONT .[id number] [facility] Last Admin: 09/07/17 07:36 Dose: 75 mls/hr Ibuprofen (Motrin) 800 mg PO Q8H PRN PRN Reason: For cramping Last Admin: 09/07/17 07:44 Dose: 800 mg Labetalol HCl (Trandate Inj) 40 mg IV.PUSH NOW PRN PRN Reason: SEE LABEL COMMENTS Labetalol HCl (Trandate Inj) 80 mg IV.PUSH NOW PRN PRN Reason: SEE LABEL COMMENTS Lactulose (Lactulose Liq) 30 ml PO DAILY PRN PRN Reason: SEVERE CONSITIPATION Miscellaneous Information ([facility] [place] [facility]) 1 each OTHER Q15M M[facility] Naloxone HCl (Narcan Inj) 0.1 mg IV.PUSH Q2M PRN PRN Reason: for opiate reversal Ondansetron HCl (Zofran Odt) 4 mg PO Q6H PRN PRN Reason: NAUSEA OR VOMITING Oxycodone/Acetaminophen (Percocet 5/325 Mg) 2 tab PO Q4H PRN PRN Reason: PAIN SCALE 6 TO 10 Oxycodone/Acetaminophen (Percocet 5/325 Mg) 1 tab PO Q4H PRN PRN Reason: PAIN SCALE 3 TO 5 Senna/Docusate Sodium (Danielle-Colace) 1 tab PO BID MADALYN Sennosides (Senokot) 17.2 mg PO Q12H PRN PRN Reason: Moderate Constipation Sodium Chloride (Ns Flush) 2 ml IV.FLUSH BID MADALYN Sodium Chloride (Ns Flush) 2 ml IV.FLUSH PRN PRN PRN Reason: FLUSH AFTER USING IV ACCESS Witch Malinda/Glycerin (Tucks Pads) 1 applicatio RECTAL QID PRN PRN Reason: HEMORRHOIDS Last Admin: 09/07/17 07:35 Dose: 1 applicatio Zolpidem Tartrate (Ambien) 5 mg PO HS PRN PRN Reason: SLEEP Assessment and Plan - Diagnosis (1) Vaginal delivery Code(s): O80 - Encounter for full-term uncomplicated delivery Status: Acute (2) PIH ( induced hypertension) Code(s): O13.9 - Gestational [-induced] hypertension without significant proteinuria, unspecified trimester Status: Acute - Plan Patient is a 21-year-old delivered at 38 weeks and 6 days. Patient is day 1 after . Patient was counseled to do 6 weeks of pelvic rest. Patient was counseled to follow up in 6 weeks. Patient requested follow-up. Patient had PIH and is being treated as below. Pressures did not exceed 160/ 110 overnight. Patient did receive 1 dose of Ancef as she had a temperature of 100.0 --Currently on IV magnesium, will receive 24 hours of treatment pending on 09/07 at [facility] --IV labetalol as needed --Afebrile overnight --Continue routine care --Motrin and Percocet when necessary for pain --Encourage OOB --Pelvic rest for 6 weeks will need follow-up appointment at that time. --Contraception: Does not desire at this time --Anticipate discharge tomorrow
[2017-09-07] MEDS ORDERED: Morphine Sulfate PF Inj 5 MG/10 ML Ampul ONE (08:28)
[2017-09-07] MEDS: Senna/Docusate Sodium 8.6/50 MG Tablet PO SCH (09:07)
[2017-09-07] MEDS: Mag Sulf/Water 40 gm/1000 ml 40 GM/1,000 ML BAG IV.CONT SCH (13:41)
--- NOTE | 2017-09-08 07:55 | P.PNOB ---
Subjective Post day: 2 Interval history: day # 2. AFVSS overnight. Pain well-controlled. Decreased lochia. Denies dysuria. No breast tenderness. She is feeding the baby via bottle. Appetite good. No nausea or vomiting. + flatus. + bowel movement. Ambulating well. Denies calf pain, shortness of breath, or cough. Otherwise, she is doing well this morning and has no other complaints. denies BESS/RUQ pain/or visual changes Objective Vital Signs/I&O: Vital Signs 09/07/17 08:00 09/07/17 09:00 09/07/17 10:00 Temperature Pulse Rate 93 H 87 91 H Respiratory Rate 16 16 Blood Pressure 154/86 H 137/49 L 137/79 09/07/17 11:00 09/07/17 13:00 09/07/17 14:46 Temperature 98.2 F Pulse Rate 87 89 82 Respiratory Rate 16 16 16 Blood Pressure 134/57 L 135/78 124/55 L 09/07/17 15:00 09/07/17 16:00 09/07/17 17:00 Temperature Pulse Rate 84 73 Respiratory Rate 16 16 Blood Pressure 142/104 H 157/87 H 09/07/17 17:29 09/07/17 18:00 09/07/17 20:00 Temperature 98.0 F Pulse Rate 76 76 70 Respiratory Rate 16 18 Blood Pressure 150/84 H 144/86 H 149/79 H 09/07/17 23:35 09/08/17 04:00 Temperature 98.4 F 98.3 F Pulse Rate 83 78 Respiratory Rate 18 18 Blood Pressure 151/87 H 157/83 H Intake & Output 09/07/17 09/08/17 09/08/17 18:59 06:59 18:59 Intake Total 1999 Balance 1999 Weight 55 kg Intake: IV 1999 LR 1000 mL Inj 1,000 ML @ 75 1000 / 1000 mls/hr IV.CONT .[id number] [facility] Rx# :[id number] Magnesium Sulfate/Water 40 gm/ 1000 / 1000 1000 ml Premix 40 gm In 1,000 ml @ 2 GM/HR 50 mls/hr IV.CONT Q24H [facility] Rx#:[id number] Other: Weight On Admission 55 kg Result Diagrams: 09/06/17 01:15 09/06/17 01:15 Objective Remarks: GENERAL: Well-nourished, well-developed patient. CARDIOVASCULAR: Regular rate and rhythm without murmurs, gallops, or rubs. RESPIRATORY: Breath sounds equal bilaterally. No accessory muscle use. ABDOMEN/GI: Abdomen soft, non-tender. Fundus: Firm, non-tender at umbilicus. GENITOURINARY: Light to moderate bleeding. EXTREMITIES: No cyanosis or edema, non-tender, without signs of DVT. Medications and IVs: Active Medications Acetaminophen (Tylenol) 650 mg PO Q4H PRN PRN Reason: PAIN SCALE 1 TO 2 Al Hydroxide/Mg Hydroxide (Milk Of Magnesia Liq) 30 ml PO Q12H PRN PRN Reason: Mild Constipation Benzocaine (Americaine 20% [place]) 1 spray TOPICAL Q4H PRN PRN Reason: For Perineum Discomfort Last Admin: 09/07/17 07:35 Dose: 1 spray Bisacodyl (Dulcolax Supp) 10 mg RECTAL DAILY PRN PRN Reason: SEVERE CONSITIPATION Calcium Chloride (Calcium Chloride Inj) 1 gm IV.PUSH UNSCH X1 PRN PRN Reason: MAGNESIUM TOXICITY Oxytocin (Pitocin 30 Units/Ns 500 Ml Premix) 30 units in 500 mls @ 2 mls/hr IV.SIG TITRATE PRN; Protocol PRN Reason: For induction of labor Magnesium Sulfate (Magnesium Sulfate/Water 40 Gm/1000 Ml Premix) 40 gm in 1, 000 mls @ 50 mls/hr IV.CONT Q24H [facility] Last Admin: 09/07/17 13:41 Dose: 2 gm/hr, 50 mls/hr Lactated Ringer's (Lr 1000 Ml Inj) 1,000 mls @ 75 mls/hr IV.CONT .[id number] [facility] Last Admin: 09/07/17 07:36 Dose: 75 mls/hr Ibuprofen (Motrin) 800 mg PO Q8H PRN PRN Reason: For cramping Last Admin: 09/07/17 22:10 Dose: 800 mg Labetalol HCl (Trandate Inj) 40 mg IV.PUSH NOW PRN PRN Reason: SEE LABEL COMMENTS Labetalol HCl (Trandate Inj) 80 mg IV.PUSH NOW PRN PRN Reason: SEE LABEL COMMENTS Lactulose (Lactulose Liq) 30 ml PO DAILY PRN PRN Reason: SEVERE CONSITIPATION Naloxone HCl (Narcan Inj) 0.1 mg IV.PUSH Q2M PRN PRN Reason: for opiate reversal Ondansetron HCl (Zofran Odt) 4 mg PO Q6H PRN PRN Reason: NAUSEA OR VOMITING Oxycodone/Acetaminophen (Percocet 5/325 Mg) 2 tab PO Q4H PRN PRN Reason: PAIN SCALE 6 TO 10 Oxycodone/Acetaminophen (Percocet 5/325 Mg) 1 tab PO Q4H PRN PRN Reason: PAIN SCALE 3 TO 5 Senna/Docusate Sodium (Danielle-Colace) 1 tab PO BID [facility] Last Admin: 09/07/17 09:07 Dose: Not Given Sennosides (Senokot) 17.2 mg PO Q12H PRN PRN Reason: Moderate Constipation Sodium Chloride (Ns Flush) 2 ml IV.FLUSH BID [facility] Sodium Chloride (Ns Flush) 2 ml IV.FLUSH PRN PRN PRN Reason: FLUSH AFTER USING IV ACCESS Witch [place]inda/Glycerin (Tucks Pads) 1 applicatio RECTAL QID PRN PRN Reason: HEMORRHOIDS Last Admin: 09/07/17 07:35 Dose: 1 applicatio Zolpidem Tartrate (Ambien) 5 mg PO HS PRN PRN Reason: SLEEP Assessment and Plan - Diagnosis (1) Pre-eclampsia Code(s): O14.90 - Unspecified pre-eclampsia, unspecified trimester Status: Acute Plan: started procardia xl 30 mg (2) Vaginal delivery Code(s): O80 - Encounter for full-term uncomplicated delivery Status: Acute Plan: routine pp care - Plan Patient is a 21-year-old delivered at 38 weeks and 6 days. Patient is day 2 after . Patient was counseled to do 6 weeks of pelvic rest. Patient was counseled to follow up in 6 weeks. Patient requested follow-up. Patient had PIH and is being treated as below. Pressures did not exceed 160/ 110 overnight. Patient did receive 1 dose of Ancef as she had a temperature of 100.0 --BPs still elevated to 150s/80s, started Procardia XL 30mg qD --Received 24hrs of IV magnesium, d/c'd 09/07 at 1950 --IV labetalol as needed --Afebrile overnight --Continue routine care --Motrin and Percocet when necessary for pain --Encourage OOB --Pelvic rest for 6 weeks will need follow-up appointment at that time. --Contraception: Does not desire at this time --Anticipate discharge later this evening/tomorrow - Attending Attestation The exam, history, and the medical decision-making described in the above note were completed with the assistance of the resident physician. I reviewed and agree with the findings presented. I attest that I had a [id number] encounter with the patient on the same day, and personally performed and documented my assessment and findings in the medical record.
[2017-09-08] MEDS: Ibuprofen 400 MG Tablet PO PRN (08:39)
[2017-09-08] MEDS: Senna/Docusate Sodium 8.6/50 MG Tablet PO SCH (08:39)
[2017-09-08 09:51] VITALS: TEMP 98
[2017-09-08 12:11] VITALS: RESP 16
[2017-09-08 15:25] VITALS: BP 133/89; PULSE 76
== END 2017-09-08 17:31 | disposition home or self-care (01) ==
LOC: HOBED 23:14 → H2E 09-06 01:02 → H1EA 09-07 19:31
PROVIDERS: ADMIT Obstetrics & Gynecology; ATTEND Obstetrics & Gynecology